=== PATIENT | female | born 1970 | race Caucasian/White ===

== ENCOUNTER 2020-12-22 22:36 | Emergency (ER) | payer BC ==
[~2020-12-22] VITALS: Ht 167.6 cm; Wt 68.2 kg
[2020-12-22 22:42] VITALS: Ht 167.6 cm; Wt 68.2 kg
[2020-12-22] MEDS ORDERED: METOPROLOL TART50 MG PO (22:43)
[2020-12-22] MEDS ORDERED: NORVASC5 MG PO (22:43)
[2020-12-22] MEDS ORDERED: TRAZODONE HCL150 MG PO (22:44)
[2020-12-22] MEDS ORDERED: CYMBALTA20 MG PO (22:44)
[2020-12-22 23:23] LABS: BASOPHILS 0.8 % (0-2); EOSINOPHILS 2.9 % (0-7); HEMATOCRIT 37.5 % (36.0-48.0); HEMOGLOBIN 12.1 g/dL (12-16); LYMPHOCYTES 30.6 % (15-50); MCHC 32.3 g/dL (31.0-37.0); MCV 80.5 fL (80.0-100.0); NEUTROPHILS 58.7 % (40-80); PLATELET COUNT 256 10x3/uL (130-400); RBC 4.65 10x6/uL (4.00-5.40); RDW 17.9 % (11.5-14.5); WBC 9.9 10x3/uL (4.8-10.8)
[2020-12-22 23:33] LABS: ANION GAP 11.1 mmol/L (8-16); CALCIUM 7.8 mg/dL (8.5-10.1); CARBON DIOXIDE 28.3 mmol/L (21.0-32.0); CREATININE - SERUM 0.9 mg/dL (0.6-1.3); POTASSIUM - SERUM 3.4 mmol/L (3.5-5.1)
[2020-12-22 23:39] LABS: ALBUMIN 3.4 g/dL (3.4-5.0); BILIRUBIN - TOTAL 0.29 mg/dL (0.2-1.3); PROTEIN - SERUM 6.9 g/dL (6.4-8.2)
[2020-12-23 00:58] LABS: SARS-CoV-2 ANTIGEN NEGATIVE- SARS-COV-2 (NEGATIVE)
[2020-12-23] MEDS ORDERED: PHENERGAN25 M1 PO (01:11)
[2020-12-23] MEDS ORDERED: ZITHROMAX500 MG PO (01:11)
[2020-12-23 01:18] VITALS: BP 150/79
== END 2020-12-23 01:18 | disposition home or self-care (01) ==
LOC: D.ER 22:36
PROVIDERS: Emergency Medicine
DX: J20.9 Acute bronchitis, unspecified (principal); R06.02 Shortness of breath